=== PATIENT | male | born 1980 | race American Indian/Alaskan Native ===

== ENCOUNTER 2018-10-02 17:34 | Emergency (ER) | payer OTHER ==
--- NOTE | 2018-10-02 18:41 | Emergency Department Report ---
Blank Doc - Documentation Documentation: This is a 38-year-old male that presents with intermittent SOB. Denies any ch est pain. This initial assessment/diagnostic orders/clinical plan/treatment(s) is/are subject to change based on patient's health status, clinical progression and re- assessment by fellow clinical providers in the ED. Further treatment and workup at subsequent clinical providers discretion. Patient/guardians urged not to elope from the ED as their condition may be serious if not clinically assessed and managed. Initial orders include: 1- Patient sent to [facility] for further evaluation and treatment 2- EKG 3- Labs 4- CXR
[2018-10-02 18:43] VITALS: BP 150/84
[2018-10-02 19:18] LABS: Basophils # (Auto) 0.1 K/mm3 (0.0-0.1); Basophils % (Auto) 1.4 % (0.0-1.8); Eosinophils # (Auto) 0.2 K/mm3 (0.0-0.4); Eosinophils % (Auto) 4.2 % (0.0-4.3); Hematocrit 39.5 % (35.5-45.6); Hemoglobin 12.9 gm/dl (11.8-15.2); Lymphocytes # (Auto) 1.7 K/mm3 (1.2-5.4); Lymphocytes % (Auto) 34.1 % (13.4-35.0); Mean Corpuscular HGB Conc 33 % (32-34); Monocytes # (Auto) 0.6 K/mm3 (0.0-0.8); Monocytes % (Auto) 11.2 % (0.0-7.3); Platelet Count 222 K/mm3 (140-440); Red Blood Count 5.74 M/mm3 (3.65-5.03); Red Cell Distribution Width 16.2 % (13.2-15.2)
[2018-10-02 19:27] LABS: Mean Corpuscular Volume 69 fl (84-94)
[2018-10-02 19:29] LABS: INR 1.02 (0.87-1.13)
[2018-10-02 19:30] LABS: Partial Thromboplastin Time 29.8 Sec. (24.2-36.6)
[2018-10-02 19:38] LABS: BUN/Creatinine Ratio 18; Blood Urea Nitrogen 9 mg/dL (9-20); Calcium 8.9 mg/dL (8.4-10.2); Hemolysis Index 7
--- NOTE | 2018-10-02 20:22 | XRay Report ---
PROCEDURE: XR CHEST ROUTINE 2V TECHNIQUE: 2 views of the chest HISTORY: Dyspnea COMPARISONS: None FINDINGS: The cardiomediastinal silhouette appears normal. The lungs are clear. The bones and soft tissues are unremarkable. IMPRESSION: No evidence of acute cardiopulmonary disease. This document is electronically signed by Laura Alarcon MD., October 02 2018 08:20:53 PM ET
--- NOTE | 2018-10-02 23:19 | Emergency Department Report ---
ED Shortness of Breath HPI - General Chief Complaint: Dyspnea/Respdistress Stated Complaint: TROUBLE BREATHING Time Seen by Provider: 10/02/18 18:39 Source: patient Mode of arrival: Ambulatory Limitations: No Limitations - History of Present Illness Initial Comments: 38-year-old obese male presents to the emergency room for complaint of shortness of breathing intermittent in nature occurs in a stressful situations. Patient denies any shortness of breath at this time. Patient reports that he has been under extreme stress in the last 6 months at work. He has had 2 episodes of shortness of breath in the last 2 days. Patient denies any homicidal or suicidal ideation. MD Complaint: shortness of breath -: days(s) (2) Consistency: intermittent Improves With: rest Worsens With: other (stressful situations) Context: anxiety - Related Data Previous Rx's Medication Instructions Recorded Last Taken Type Ketorolac [Toradol] 10 mg PO Q6H PRN #15 tablet 06/08/18 Unknown Rx Methocarbamol [Robaxin TAB] 750 mg PO Q8H PRN #14 tablet 06/08/18 Unknown Rx hydrOXYzine HCL [Atarax] 25 mg PO Q6HR PRN #15 tablet 10/02/18 Unknown Rx Allergies Allergy/AdvReac Type Severity Reaction Status Date / Time No Known Allergies Allergy Unverified 06/08/18 07:31 ED Review of Systems ROS: Stated complaint: TROUBLE BREATHING Other details as noted in HPI Comment: All other systems reviewed and negative ED Past Medical Hx - Past Medical History Previous Medical History?: No - Surgical History Past Surgical History?: No - Social History Smoking Status: Never Smoker Substance Use Type: None - Medications Home Medications: Home Medications Medication Instructions Recorded Confirmed Last Taken Type Ketorolac [Toradol] 10 mg PO Q6H PRN #15 tablet 06/08/18 Unknown Rx Methocarbamol [Robaxin TAB] 750 mg PO Q8H PRN #14 tablet 06/08/18 Unknown Rx hydrOXYzine HCL [Atarax] 25 mg PO Q6HR PRN #15 tablet 10/02/18 Unknown Rx ED Physical Exam - General Limitations: No Limitations General appearance: alert, in no apparent distress - Head Head exam: Present: atraumatic, normocephalic - Eye Eye exam: Present: normal appearance - ENT ENT exam: Present: mucous membranes moist - Neck Neck exam: Present: normal inspection - Respiratory Respiratory exam: Present: normal lung sounds bilaterally. Absent: respiratory distress - Cardiovascular Cardiovascular Exam: Present: regular rate, normal rhythm. Absent: systolic murmur, diastolic murmur, rubs, gallop - GI/Abdominal GI/Abdominal exam: Present: soft, normal bowel sounds - Rectal Rectal exam: Present: deferred - Extremities Exam Extremities exam: Present: normal inspection - Back Exam Back exam: Present: normal inspection - Neurological Exam Neurological exam: Present: alert, oriented X3 - Psychiatric Psychiatric exam: Present: normal affect, normal mood - Skin Skin exam: Present: warm, dry, intact, normal color. Absent: rash ED Course Vital Signs 10/02/18 18:41 Temperature 98.1 F Pulse Rate 84 Respiratory 16 Rate Blood Pressure 150/84 Blood Pressure 150/84 [Right] O2 Sat by Pulse 98 Oximetry ED Medical Decision Making - Lab Data Result diagrams: 10/02/18 18:52 10/02/18 18:52 - Radiology Data Radiology results: report reviewed Patient: ELENA SEALS MR#: [id number] : 1980 Acct:[id number] Age/Sex: 38 / M ADM Date: 10/02/18 Loc: ED Attending Dr: Ordering Physician: BUDDY BAUTISTA NP Date of Service: 10/02/18 Procedure(s): XR chest routine 2V Accession Number(s): [id number] cc: BUDDY BAUTISTA NP Fluoro Time In Minutes: PROCEDURE: XR CHEST ROUTINE 2V TECHNIQUE: 2 views of the chest HISTORY: Dyspnea COMPARISONS: None FINDINGS: The cardiomediastinal silhouette appears normal. The lungs are clear. The bones and soft tissues are unremarkable. IMPRESSION: No evidence of acute cardiopulmonary disease. This document is electronically signed by May Alarcon MD., October 02 2018 08:20:53 PM ET Transcribed By: ML Dictated By: MAY ALARCON MD Electronically Authenticated By: MAY ALARCON MD Signed Date/Time: 10/02/182021 DD/ 29 TD/TT: 10/02/181929 - Medical Decision Making Patient has been evaluated by this provider in fast track. Chest x-ray negative. Lab work shows a mild elevation of glucose of 162. Discussed the patient to follow-up with [place] [facility] as well as his primary care provider for elevated blood glucose. Patient verbalizes understanding Critical care attestation.: If time is entered above; I have spent that time in minutes in the direct care of this critically ill patient, excluding procedure time. ED Disposition Clinical Impression: Anxiety, Elevated glucose Disposition: DC-01 TO HOME OR SELFCARE Is pt being admited?: No Does the pt Need Aspirin: No Condition: Stable Instructions: Anxiety (ED) Additional Instructions: Please take medication only as needed. Do not operate heavy machinery while taking medication. Very important for you to follow-up with her [place] providers in regards to her elevated glucose as well as her increased anxiety and stress. Please give [place] call to see if her able to be seen earlier than her appointment that is scheduled for 10/19/2018. Prescriptions: hydrOXYzine HCL [Atarax] 25 mg PO Q6HR PRN #15 tablet PRN Reason: Itching Referrals: LYNNETTE DUBOIS MD [Primary Care Provider] - 3-5 Days Forms: Work/School Release Form(ED)
== END 2018-10-02 23:40 | disposition home or self-care (01) ==
LOC: ED 17:34
DX: R06.02 Shortness of breath (principal); F41.9 Anxiety disorder, unspecified; R73.09 Other abnormal glucose
CPT/HCPCS: 36415; 71046; 80048; 84484; 85025; 85610; 85730